=== PATIENT | male | born 2000 | race Caucasian/White ===

== ENCOUNTER 2019-03-26 12:27 | Emergency (ER) | payer OTHER ==
[~2019-03-26] VITALS: Ht 167.6 cm; Wt 80.0 kg
[2019-03-26 12:28] VITALS: BP 166/96
[2019-03-26] MEDS ORDERED: NORC1TAB8 PO (12:36)
[2019-03-26] MEDS ORDERED: CYCL5TAB PO (14:05)
[2019-03-26] MEDS ORDERED: KETO10TAB PO (14:05)
== END 2019-03-26 14:10 | disposition home or self-care (01) ==
LOC: M ED 12:27
DX: M25.511 Pain in right shoulder (principal); Z79.891 Long term (current) use of opiate analgesic

== ENCOUNTER 2021-03-01 06:28 | Emergency (ER) | payer OTHER ==
[~2021-03-01] VITALS: Ht 167.6 cm; Wt 75.6 kg
[~2021-03-01 06:28] MED LIST: CYCL5TAB PO; KETO10TAB PO; NORC1TAB8 PO
[2021-03-01] MEDS ORDERED: NS 1,000 ML IV ONE (07:00)
[2021-03-01] MEDS ORDERED: ONDANSETRON 4MG/2ML VIAL IV ONE (07:00)
[2021-03-01 07:08] LABS: BASO % 0.5 % (0.0-1.0); EOS % 0.4 % (0.0-3.0); HEMATOCRIT 51.2 % (42.0-52.0); HEMOGLOBIN 17.3 g/dl (13.5-17.5); LYMPH # 1.8 10^3/uL (1.5-5.0); LYMPH % 22.3 % (24.0-44.0); MEAN CORPUSCULAR HEMOGLOBIN 28.8 pg (27.0-33.0); MEAN CORPUSCULAR HGB CONC 33.8 g/dl (32.0-36.5); MEAN CORPUSCULAR VOLUME 85.3 fl (80.0-96.0); MONO # 0.6 10^3/uL (0.0-0.8); MONO % 7.3 % (2.0-8.0); NEUTROPHILS # 5.5 10^3/uL (1.5-8.5); NEUTROPHILS % 69.2 % (36.0-66.0); PLATELET COUNT, AUTOMATED 262 10^3/uL (150-450); WHITE BLOOD COUNT 7.9 10^3/uL (4.0-10.0)
[2021-03-01 07:29] LABS: MONO REFLEX EBV COMP NEGATIVE (NEGATIVE)
[2021-03-01 07:30] LABS: ALBUMIN 4.9 GM/DL (3.2-5.2); ALT/SGPT 37 U/L (12-78); BILIRUBIN,DIRECT 0.2 MG/DL (0.0-0.2); BILIRUBIN,TOTAL 0.9 MG/DL (0.2-1.0); BLOOD UREA NITROGEN 7 MG/DL (7-18); CALCIUM LEVEL 10.3 MG/DL (8.5-10.1); CARBON DIOXIDE LEVEL 25 MEQ/L (21-32); CHLORIDE LEVEL 104 MEQ/L (98-107); CREATININE FOR GFR 1.08 MG/DL (0.70-1.30); GLOMERULAR FILTRATION RATE > 60.0 (>60); GLUCOSE, FASTING 98 MG/DL (70-100); LIPASE 87 U/L (73-393); POTASSIUM SERUM 3.5 MEQ/L (3.5-5.1); SODIUM LEVEL 140 MEQ/L (136-145); TOTAL PROTEIN 8.7 GM/DL (6.4-8.2)
[2021-03-01 07:50] LABS: CK-MB VALUE MASS 3.1 NG/ML (<3.6); CPK CREATINE PHOSPHOKINASE 624 U/L (39-308)
--- NOTE | 2021-03-01 08:37 | REP ---
INDICATION: vapes with THC, chills, sweating, cough. COMPARISON: None. TECHNIQUE: Two views FINDINGS: Lungs are well inflated. CP angle sharply defined. No infiltrate, atelectasis, pulmonary nodule or parenchymal mass. There are few cuffed bronchi in the perihilar regions that might reflect some reactive airway disease or bronchitis. Cardiomediastinal silhouette and airway were normal. There is no vascular redistribution or edema. Bony thorax unremarkable. There is no free air under the diaphragm IMPRESSION: Some minor perihilar changes of bronchitis or reactive airway disease. No acute infiltrate, effusion, cardiomegaly, vascular redistribution or edema. Bony thorax without acute finding. <Electronically signed by Cj Mcbride > 03/01/21 [id number]
[2021-03-01] MEDS ORDERED: ONDA4TAB6 PO (09:02)
[2021-03-01 09:13] VITALS: BP 144/90
[2021-03-02 16:12] LABS: EBV AB TO NUCLEAR ANTIGEN <18.0 U/mL (0.0-17.9); EBV VIRAL CAPSID AG IgG >600.0 U/mL (0.0-17.9); EBV VIRAL CAPSID AG IgM <36.0 U/mL (0.0-35.9); Lyme Disease IgG/IgM Antibodie <0.91 ISR (0.00-0.90); Lyme Disease IgM Ab Quantitati <0.80 index (0.00-0.79)
== END 2021-03-01 09:08 | disposition home or self-care (01) ==
LOC: M ED 06:28
DX: R11.2 Nausea with vomiting, unspecified (principal); R19.7 Diarrhea, unspecified; M79.10 Myalgia, unspecified site
CPT/HCPCS: 71046; 80048; 80076; 82553; 83605; 83690; 85025; 86308; 86617; 86664; 86665; 87040; 87798; 87880; 96361; 96374; 99284; J2405